=== PATIENT | male | born 1950 | race Caucasian/White ===

== ENCOUNTER 2021-11-19 07:18 | Day surgery (SDC) | payer OTHER ==
[~2021-11-19] VITALS: Ht 177.8 cm; Wt 84.0 kg
[~2021-11-19 07:18] MED LIST: ASPI81CH PO; ATOR80 PO; CHLO25B PO; Hair, Skin & N1 EACH PO; LOSA50 PO; METF500 PO; METO25ER PO; NITR.4SL SL; SPIR25 PO; TORSE20 PO; XARELTO20 M1 PO; ZESTRIL40 M1 PO
[2021-11-19] MEDS ORDERED: NITROGLYCERIN PATCH TD (07:51)
--- NOTE | 2021-11-19 12:05 | NUR ---
UP TO BATHROOM TOLERATED WELL. NO BLEEDING AT SITE.
--- NOTE | 2021-11-19 12:30 | NUR ---
IV REMOVED INTACT. 2X2,COBAN AND MANUAL PRESSURE HELD.
--- NOTE | 2021-11-19 12:47 | NUR ---
DISCHARGED HOME VIA WHEELCHAIR. DRIVING.
== END 2021-11-19 12:40 | disposition home or self-care (01) ==
LOC: MHTC 07:18
DX: I25.10 Atherosclerotic heart disease of native coronary artery without angina pectoris (principal); R06.09 Other forms of dyspnea; I11.0 Hypertensive heart disease with heart failure; I50.9 Heart failure, unspecified; E11.9 Type 2 diabetes mellitus without complications; I48.0 Paroxysmal atrial fibrillation; E78.5 Hyperlipidemia, unspecified; I25.5 Ischemic cardiomyopathy; Z95.1 Presence of aortocoronary bypass graft; Z79.84 Long term (current) use of oral hypoglycemic drugs
CPT/HCPCS: 76937; 93455; 99152; 99153; C1760; C1769; C1894; J1644; J2250; J3010; J7030; J7050; Q9967